=== PATIENT | female | born 1995 | race Caucasian/White ===

== ENCOUNTER 2017-09-22 20:46 | Inpatient (IN) | payer BC, OTHER | END 2017-09-22 22:00 | disposition left against medical advice (07) | DRG 894 | LOC: SRC 21:22 | PROVIDERS: ADMIT Internal Medicine; ATTEND Internal Medicine | DX: F19.230 Other psychoactive substance dependence with withdrawal, uncomplicated (principal); Z75.3 Unavailability and inaccessibility of health-care facilities ==